=== PATIENT | female | born 1985 | race Caucasian/White ===

== ENCOUNTER 2018-01-26 15:12 | Emergency (ER) | payer SELFPAY ==
[~2018-01-26] VITALS: Ht 165.1 cm; Wt 55.0 kg
[2018-01-27] MEDS ORDERED: IBUPROFEN 600MG TABLET PO ONE (01:15)
[2018-01-27 02:06] LABS: CLARITY URINE CLEAR (CLEAR); COLOR URINE YELLOW (YELLOW); KETONES URINE NEGATIVE (NEGATIVE); LEUKOCYTE ESTERASE URINE NEGATIVE (NEGATIVE); NITRITE URINE NEGATIVE (NEGATIVE); OCCULT BLOOD URINE NEGATIVE (NEGATIVE); PH URINE 6.5 (4.5-8.0); PROTEIN URINE NEGATIVE (NEGATIVE); SPECIFIC GRAVITY URINE 1.005 (1.005-1.030); UROBILINOGEN URINE 0.2 E.U./dL (0.2-1.0)
[2018-01-27 02:25] LABS: *BARBITURATES SCREEN URINE NEGATIVE (NEGATIVE); *BENZODIAZEPINES SCREEN URINE NEGATIVE (NEGATIVE); *COCAINE SCREEN URINE NEGATIVE (NEGATIVE); CANNABINOID URINE SCREEN NEGATIVE (NEGATIVE); METHADONE URINE SCREEN NEGATIVE (NEGATIVE); OPIATES URINE SCREEN NEGATIVE (NEGATIVE); PHENCYCLIDINE URINE SCREEN NEGATIVE (NEGATIVE)
[2018-01-27 02:51] LABS: *AMPHETAMINES SCREEN URINE PRESUMTIVE POSITIVE (NEGATIVE)
[2018-01-27 05:45] VITALS: BP 132/83
== END 2018-01-27 06:34 | disposition home or self-care (01) ==
LOC: ER 17:16
DX: B35.3 Tinea pedis (principal); F90.9 Attention-deficit hyperactivity disorder, unspecified type; Z88.0 Allergy status to penicillin; Z88.1 Allergy status to other antibiotic agents
CPT/HCPCS: 80305; 81003; 81025; 99284

== ENCOUNTER 2018-06-05 10:09 | Emergency (ER) | payer MEDICAID, OTHER ==
[~2018-06-05] VITALS: Ht 165.1 cm; Wt 60.0 kg
[2018-06-05] MEDS ORDERED: HYDROCODONE/ACETAMINOPHEN 5/325MG TABLET PO ONE (15:45)
[2018-06-05 15:49] VITALS: BP 141/76
== END 2018-06-05 16:23 | disposition home or self-care (01) ==
LOC: ER 10:09
DX: K08.89 Other specified disorders of teeth and supporting structures (principal); J32.0 Chronic maxillary sinusitis; Z88.0 Allergy status to penicillin; Z88.1 Allergy status to other antibiotic agents
CPT/HCPCS: 99282; 99283